=== PATIENT | male | born 1935 | race Caucasian/White ===

== ENCOUNTER 2019-02-16 13:00 | Outpatient (RCR) | payer MEDICARE, OTHER, SELFPAY ==
--- NOTE | 2019-01-05 15:45 | HP.PTEVAL ---
Patient's Visit Information ERIK RESENDEZ is a 83 year old M referred to Physical Therapy by [facility] with a diagnosis of Hip OA, Debility. Date of Evaluation: 01/05/19 Physical Therapist: Sarah Corley DPT - Visit Plan Frequency: 2x /Week Duration: 4 Weeks Plan: Aquatic Therapy- focus on LE and core strength/stabilization for hip pain management and deibility - Subjective Findings: Patient reports that the he hurts all over and the MD wants him to get moving. Pain management sent him here to do aquatic therapy. Is on 2L of O2 at all times. Normal day for him is very sedentary- his and his home health aid (4x a week for 1.5 hours) that do all of his ADL's. The home health aid does most of his showers and helps with dressing. Outside of the house he uses the scooter and inside the home he uses a rollerator. Sleeps in a regular bed. Single story living- has a stair lift to the basement. No stairs to enter the home. Has a great set up at home and does not need anything more. Pain in the hips in the last 24 hours has been a 6-8/10. Makes it better when he is moving around. Best: 5/10. The right is worse than the left. The Left does not bother him at all. His is able to come and dress him after therapy. Sleep: not disturbed. Has been in pain mgmt for about 6-8 months. They work on pain all over- shoulders are also really bad- has an injection in the left shoulder. Had one fall- due to - September. reports that he is wobbly. - Objective Posture: FH, RS- pt is significantly overweight. Gait: uses scooter to navigate long distances- uses quad cane to ambulate 15 feet with SOB, lumber gait pattern and SBA from . Sit to stand: min A with bilateral UE A. ROM: WFL. Strength: Ankle: 4+/5, knee: 4+/5, Hip: 4-/5 Core: poor. Stairs: unable at this time. Endurance: poor. Balance: sitting: fair. Standing dynamic: poor, Standing static: fair minus - Goals Goal 1:: Patient will be I with HEP and progression Goal Time Frame: 4-6 Weeks Goal 2:: Patient will ambulate >300 feet with a cane Goal 3:: Patient will sit to stand x5 with single UE Goal Time Frame: 4-6 Weeks Goal 4:: Patient will maintain proper posture t/o tx session to demo increased core s/s. Goal Time Frame: 4-6 Weeks - Rehabilitation Potential Physical Therapy Diagnosis: Patient presents with hypomobility- he has decrease strength, flex and muscular endurance leading to abnormal gait, debility and inability to perform ADL's. Rehabilitation Potential: Fair - Anticipated Interventions Patient/Client Instruction: Educate patient on: Benefits of Fitness Program Therapeutic Exercise to Include: Strength training, Endurance training, Balance training, Body mechanics, Postural training, Flexibilty training, Gait and locomotor training, In an aquatic setting, Dynamic Lumbar Stabilization Thank you for the opportunity to evaluate your patient. For Medicare and Medicare HMO plans, please review the plan of care and approve it. It will need to be FAXED BACK to us at [phone] for Medicare purposes. For Medicare only, by signing this I certify the plan of care. Please let me know if there are questions or concerns regarding this plan of care. Physician Signature: Date:
--- NOTE | 2019-04-04 11:47 | HP.PT.NRP ---
HP - Discharge Summary (1) - Patient Information ERIK RESENDEZ was seen in my office for initial evaluation on 01/05/19. The following Plan of Care was established for this patient: Initial Frequency: 2x /Week Initial Duration: 4 Weeks - Anticipated Interventions Patient/Client Instruction: Educate patient on: Benefits of Fitness Program Therapeutic Exercise to Include: Strength training, Endurance training, Balance training, Body mechanics, Postural training, Flexibilty training, Gait and locomotor training, In an aquatic setting, Dynamic Lumbar Stabilization This patient was last seen in our office . Pertinent comments regarding their Physical therapy will appear below: At this point I will be discontinuing this patient from physical therapy. I would be happy to see this patient again in the future if found appropriate by the physician. Thank you! MEGAN JohnsonT
== END 2019-02-16 19:00 | disposition home or self-care (01) ==
LOC: PT 13:00
DX: M25.551 Pain in right hip (principal)
CPT/HCPCS: 97113; 97162

== ENCOUNTER 2020-11-12 00:40 | Inpatient (IN) | payer OTHER, MEDICARE, MEDICAID, SELFPAY ==
[2020-11-12] VITALS (17 sets, daily range): BP systolic 90–146; BP diastolic 35–90; PULSE 63–88; RESP 16–20; TEMP 36.6–39.6; O2SAT 95–100; BMI 54.1; BMI 53.1; BMI 53.2
--- NOTE | 2020-11-12 00:42 | RAD_ITS ---
STUDY: X-RAY CHEST REASON FOR EXAM: Male, 85 years old. fever TECHNIQUE: Single AP portable view of the chest. COMPARISON: None. FINDINGS: The lungs are clear and expanded. There is no demonstrated pleural abnormality. There is mild cardiac enlargement. Normal mediastinum and placido. Normal visualized pulmonary arteries. Normal visualized aortic arch and descending thoracic aorta. Normal visualized thoracic spine. Normal visualized ribs, clavicles, and shoulders. Moderate hilar hernia There is no demonstrated abnormality of the visualized soft tissue structures of the upper abdomen. RAD/Chest 1 View (Portable) IMPRESSION: Lungs are clear Electronically Signed: Delano Saxena DO at 1:27 EDT Tel , Service support ,
--- NOTE | 2020-11-12 00:42 | EKG12_ITS ---
Test Reason : SOB Blood Pressure : / mmHG Vent. Rate : 087 BPM Atrial Rate : 084 BPM P-R Int : 000 ms QRS Dur : 206 ms QT Int : 462 ms P-R-T Axes : 000 229 009 degrees QTc Int : 555 ms Wide QRS rhythm Right bundle branch block pattern Inferior infarct , age undetermined , cannot be excluded Abnormal ECG Confirmed by GISELE BURNETTE, NEWTON ([id number]), guitar maker LEOBARDO SANTIAGO ([id number]) on 11/13/2020 9:57:28 AM Referred By: JALEEL Confirmed By:NEWTON JAQUEZ MD
--- NOTE | 2020-11-12 00:43 | ED.DCSUM_ITS ---
History of Present Illness Chief Complaint: Fever Informant: Patient, Family Onset: Today Narrative: Patient is a 5-year-old male presenting with altered mental status and fever. Patient had hemodialysis today. He had a full session. He seemed weak and confused the is concerned may be having a stroke so EMS was called. Patient is found to be tachycardic and febrile with a temperature of 104 ?F by EMS. Patient currently denies any complaints. He does wear oxygen normally he is not sure how much but states a little. No other complaints at this time. Is at the bedside. She states he wears 2 L of oxygen at baseline. He states that he seemed normal after dialysis today. He woke up from a nap and that is when he was confused and shaking she states he was recently on oral antibiotics for an infection around his right eye. She is worried is coming back. Patient did have both Covid vaccines in July. Past Medical History - Allergies and Home Meds Allergies/Adverse Reactions: Allergies horse serum Allergy (Uncoded 11/12/20 00:44) Danny Primary Care Physician: [place] [place] [Primary Care Provider] - Past Medical History: - - End-stage renal disease on hemodialysis, diabetes mellitus, Pepcid, dementia, atrial fibrillation Lives: Spouse/ Significant Other - Family History Maternal Family History: Reports: No pertinent history Review of Systems General: Reports: Chills, Fever, Malaise. Denies: Sweats Eyes: Reports: - - Right eye discharge. Denies: Visual changes - bilaterally, Diplopia ENT: Denies: Rhinorrhea, Sore throat Cardiovascular: Denies: Chest pain, Palpitations Respiratory: Denies: Dyspnea, Cough, Dyspnea on exertion Gastrointestinal: Denies: Abdominal pain, Nausea, Vomiting, Diarrhea, Melena, Hematochezia Genitourinary: Denies: Dysuria, Hematuria, Frequency Musculoskeletal: Denies: Back pain, Extremity Pain Skin: Denies: Rash, Wounds Neurological: Reports: Weakness - Generalized, - - Confusion. Denies: Headache, Numbness Physical Exam Inital Vital Signs reviewed: Yes General: Well nourished, Well developed, Obese, No Acute Distress Head: Normocephalic, Atraumatic Eyes: Perrl, EOMI, - - Mild purulent discharge noted around the right eye ENT: Moist mucous membranes, No rhinorrhea Neck: Supple, Nontender, No JVD Cardiovascular: Regular rhythm, No murmurs, Tachycardia, - - AV fistula in the left upper extremity Respiratory: No distress, CTA bilaterally, Chest nontender Abdomen: Soft, Nontender, Nondistended, Normal bowel sounds. Negative for: Guarding, Rebound tenderness Back: Nontender, Normal Inspection Extremities: Nontender, No edema Skin: Normal color, No rash, - - 2 biopsies spots noted on the scalp. Granulomatous tissue present. Neurological: Alert, Cranial nerves II-XII grossly intact, Normal Strength, Normal Sensation, Disoriented Psychological: Normal affect, Normal Mood Diagnostic/Tx/Re-eval Chest X-Ray - ED: 1 View, Read by ED Physician, Read by Radiologist, No Acute Disease Clinical Impression(s) from Imaging Studies Chest X-Ray 11/12/20 00:42 IMPRESSION: Lungs are clear Electronically Signed: Delano Saxena DO at 1:27 EDT Tel , Service support , Brain CT 11/12/20 02:51 IMPRESSION: Chronic involutional changes of the brain. Electronically Signed: Delano Saxena DO at 3:49 EDT Tel , Service support , Chest/Abdomen/Pelvis CT 11/12/20 02:51 IMPRESSION: 1. Lungs are clear. 2. Large hiatal hernia. No evidence of bowel obstruction. Unremarkable appendix. 3. No acute findings throughout the abdomen or pelvis. Moderate constipation. Electronically Signed: Delano Saxena DO at 4:00 EDT Tel , Service support , Facial/Sinus 11/12/20 02:51 IMPRESSION: Small amount of preseptal periorbital soft tissue swelling on the right. Otherwise, unremarkable exam Electronically Signed: Delano Saxena DO at 3:50 EDT Tel , Service support , Laboratory Data 11/12/20 11/12/20 11/12/20 01:00 01:00 01:00 WBC 7.1 RBC 3.44 L Hgb 12.2 L Hct 38.4 L MCV 111.6 H MCH 35.5 H MCHC 31.8 L RDW Std Deviation 69.5 H RDW Coeff of Nereyda 17.1 H Plt Count 118 L MPV 9.3 Immature Gran % (Auto) 1.000 H Neut % (Auto) 78.5 H Lymph % (Auto) 8.7 L [place] % (Auto) 9.6 Eos % (Auto) 1.6 Baso % (Auto) 0.6 Absolute Neuts (auto) 5.5 Absolute Lymphs (auto) 0.61 L Nucleated RBC % 0.4 PT 12.9 INR 1.0 APTT 22.8 L Sodium 133 L Potassium 5.1 Chloride 96 L Carbon Dioxide 31.0 Anion Gap 6 BUN 19 H Creatinine 5.48 H Estim Creat Clear Calc 9.22 Est GFR (MDRD) Af Amer 13 L Est GFR (MDRD) Non-Af 11 L BUN/Creatinine Ratio 3.5 L Glucose 186 H Lactic Acid Calcium 8.3 L Total Bilirubin 0.60 AST 12 L ALT 22 Alkaline Phosphatase 111 Troponin I < 0.015 Total Protein 7.7 Albumin 3.6 Globulin 4.1 Albumin/Globulin Ratio 0.9 11/12/20 01:00 WBC RBC Hgb Hct MCV MCH MCHC RDW Std Deviation RDW Coeff of Nereyda Plt Count MPV Immature Gran % (Auto) Neut % (Auto) Lymph % (Auto) [place] % (Auto) Eos % (Auto) Baso % (Auto) Absolute Neuts (auto) Absolute Lymphs (auto) Nucleated RBC % PT INR APTT Sodium Potassium Chloride Carbon Dioxide Anion Gap BUN Creatinine Estim Creat Clear Calc Est GFR (MDRD) Af Amer Est GFR (MDRD) Non-Af BUN/Creatinine Ratio Glucose Lactic Acid 1.6 Calcium Total Bilirubin AST ALT Alkaline Phosphatase Troponin I Total Protein Albumin Globulin Albumin/Globulin Ratio - Rhythm Strip Rhythm Strip: Sinus Rhythm Rate: 87 Ectopy: None - EKG Initial EKG Interpretation: Sinus Rhythm, - - Junctional rhythm at a rate of 87 Right bundle branch block Widening QRS of [address] segments - Medical Decision Making Patient is evaluated for confusion and fever. Patient is febrile and tachycardic in the ER. He is also tachypneic. He is given Tylenol with improvement of the above symptoms. Patient does not have any focal neurologic deficits. He has a normal neurologic exam. states he is not acting himself but notes that he does have a little bit of underlying dementia.Work-up shows normal white blood cell count of 7.1. Mild anemia of 12.2 but considering these end-stage renal disease, this is likely his baseline. CMP is significant for mild hyperglycemia and elevated creatinine again, consistent with end-stage renal disease. Troponin is normal. Lactate is normal. There is no obvious source of infection. Did not obtain a urine as patient does not regularly produce urine. Covid swab is negative. Patient is also vaccinated for Covid. Chest x-rays not show any acute process. notes he did recently have an infection around his right eyes I did obtain CT face as well as head. Patient is found to have a small amount of swelling in the preseptal area of the right eye. In addition looking for source of infection, CT chest abdomen pelvis obtained. There is no obvious source of infection. Blood cultures are pending. Patient is not given antibiotics is not have a clear source. He does not have any nuchal rigidity or rash consistent with meningitis. Patient will be admitted for further observation and gentle hydration. Patient and his agreeable with plan of care. ED Disposition - Plan for ED Patient: Disposition: Acute Care [facility] Diagnosis: Fever, Renal failure, Diabetes [facility]errals: [facility] [Primary Care Provider] -
[2020-11-12] MEDS: Acetaminophen 325 MG Tablet 650 MG PO ×2 (00:52→11:49)
[2020-11-12 01:07] LABS: Absolute Lymphocyte Count 0.61 X10^3/uL (0.83-4.51); Absolute Neutrophil Count 5.5 X10^3/uL (2.0-7.7); Basophil# 0.04 X10^3/uL; Basophil% 0.6 % (0-1); Eosinophil# 0.11 X10^3/uL; Eosinophils% 1.6 % (0-5); Hematocrit 38.4 % (40-54); Hemoglobin 12.2 g/dL (13.0-16.5); Lymphocyte # 0.61 X10^3/ul (0.83-4.51); Lymphocyte % 8.7 % (19-41); Mean Corp Hgb Conc 31.8 g/dL (32-36); Mean Corpuscular Hgb 35.5 pg (27.0-32.0); Mean Corpuscular Volume 111.6 fL (80-94); Mean Platelet Vol. 9.3 fl (6.2-12.0); Monocyte# 0.68 X10^3/uL; Monocyte% 9.6 % (0-10); NRBC Flagged by Analyzer 0.4 % (0-5); Neutrophil # 5.54 X10^3/uL (2.7-7.7); Neutrophil % 78.5 % (47-70); POSITIVE MORPHOLOGY YES; Platelet Count 118 K/mm3 (150-450); RBC Distribution Width CV 17.1 % (11.6-14.6); RBC Distribution Width SD 69.5 fl (35.1-43.9); Red Blood Count 3.44 M/mm3 (4.6-6.2); White Blood Count 7.1 K/mm3 (4.4-11.0)
[2020-11-12 01:15] LABS: Prothrombin Time (Protime)PT. 12.9 SECONDS (11.7-14.9)
[2020-11-12 01:16] LABS: Partial Thromboplast Time 22.8 Seconds (24.1-36.2)
[2020-11-12 01:23] LABS: Differential Indicated SCAN CRITERIA MET
[2020-11-12 01:55] LABS: Lactic Acid 1.6 mmol/L (0.4-1.9)
--- NOTE | 2020-11-12 02:51 | CT_ITS ---
STUDY: CT CHEST, ABDOMEN T PELVIS WITHOUT CONTRAST REASON FOR EXAM: Male, 85 years old. fever, AMS RADIATION DOSAGE (If Supplied By Facility): CTDIvol = ( 38.63 ) mGy, DLP = ( 3503.18 ) mGycm TECHNIQUE: Transaxial imaging was performed without the administration of intravenous contrast material. Individualized dose optimization techniques were used for this CT. COMPARISON: No relevant priors. FINDINGS: CHEST Lungs are adequately inflated. Bibasilar atelectasis. No consolidation or effusion. There is no demonstrated pleural abnormality. There is moderate cardiac enlargement. Normal pericardium Normal mediastinum. Normal hilar regions. Normal unenhanced pulmonary arteries. Normal aorta arch and descending thoracic aorta. There are multi-level degenerative changes of the thoracic spine. There is no demonstrated abnormality of the visualized upper abdomen. ABDOMEN The visualized lung bases are unremarkable. The visualized portions of the heart are within normal limits. Normal liver. Normal gallbladder and extrahepatic biliary system. Normal spleen. There is diffuse atrophy of the pancreas. Normal bilateral adrenal glands. There is severe cortical atrophy of the right kidney, consistent with chronic medical renal disease. There is severe cortical atrophy of the left kidney, consistent with chronic medical renal disease. Large hiatal hernia. Otherwise, unremarkable stomach. Normal small intestine. Chronic diverticulosis without acute diverticulitis. Moderate fecal retention throughout the colon. The appendix is visualized and appears normal. There is diffuse atherosclerotic calcification of the abdominal aorta, without a demonstrated aneurysm. Normal inferior vena cava. Normal retroperitoneum. Normal abdominal wall. There are diffuse degenerative changes of the visualized lumbar spine. PELVIS Nondistended urinary bladder Normal visualized small intestine. Normal visualized colon. There is no pelvic fluid. There is no pelvic lymphadenopathy or mass lesion. Normal visualized pelvic arteries. There is a left inguinal hernia containing fat. There are diffuse degenerative changes of the visualized lumbar spine. CT/CT Chest, Abd, Pelvis WO Cont IMPRESSION: 1. Lungs are clear. 2. Large hiatal hernia. No evidence of bowel obstruction. Unremarkable appendix. 3. No acute findings throughout the abdomen or pelvis. Moderate constipation. Electronically Signed: Delano Saxena DO at 4:00 EDT Tel , Service support ,
--- NOTE | 2020-11-12 02:51 | CT_ITS ---
STUDY: CT BRAIN WITHOUT CONTRAST REASON FOR EXAM: Male, 85 years old. AMS, fever RADIATION DOSAGE (If Supplied By Facility): CTDIvol = ( 44.99 ) mGy, DLP = ( 812.98 ) mGycm TECHNIQUE: Transaxial CT imaging of the brain was performed without administration of intravenous contrast material. Individualized dose optimization techniques were used for this CT. COMPARISON: No relevant priors. FINDINGS: Normal soft tissue structures. Normal calvarium. There is mild cerebral atrophy with widening of the extra-axial spaces and ventricular dilatation. There are areas of decreased attenuation within the white matter tracts of the supratentorial brain, consistent with microvascular disease changes. Normal basal ganglia and thalami. Normal brainstem. Normal cerebellum. There is no intracranial hemorrhage. There are no findings of an acute ischemic infarction. Normal visualized paranasal sinuses. CT/Brain/Head without Contrast IMPRESSION: Chronic involutional changes of the brain. Electronically Signed: Delano Saxena DO at 3:49 EDT Tel , Service support ,
--- NOTE | 2020-11-12 02:51 | CT_ITS ---
STUDY: CT FACIAL BONES WITHOUT CONTRAST REASON FOR EXAM: Male, 85 years old. fever, right eye infection RADIATION DOSAGE (If Supplied By Facility): CTDIvol = ( 29.38 ) mGy, DLP = ( 591.53 ) mGycm TECHNIQUE: The patient was scanned in a multi detector CT scanner. Sagittal and coronal images were reconstructed. Individualized dose optimization techniques were used for this CT. COMPARISON: None. FINDINGS: Very subtle right preseptal periorbital soft tissue swelling and edema. Normal orbital skinner and orbital contents. Normal nasal bones and anterior nasal spine. Normal facial bones. There is no demonstrated fracture. Normal visualized paranasal sinuses. CT/Sinus/Facial Bone IMPRESSION: Small amount of preseptal periorbital soft tissue swelling on the right. Otherwise, unremarkable exam Electronically Signed: Delano Saxena DO at 3:50 EDT Tel , Service support ,
[2020-11-12 03:28] LABS: ALB/GLOB Ratio 0.9 RATIO (0.9-2.4); AST(SGOT) 12 U/L (15-37); Alanine Aminotransfer ALT/SGPT 22 U/L (16-61); Albumin, Serum 3.6 g/dL (3.2-5.0); Alkaline Phosphatase 111 U/L (45-117); Anion Gap 6 (5-15); BUN 19 mg/dL (7-18); BUN/Creat Ratio 3.5 RATIO (10-20); Calcium,Total 8.3 mg/dL (8.5-10.1); Chloride 96 mmol/L (98-107); Creatinine, Serum 5.48 mg/dL (0.70-1.30); EST Glomerular Filtration Rate 11 mL/min (>60); Est Glom Filt Rate - Afr Amer 13 mL/min (>60); Estimated Creatinine Clearance 9.22 ml/min; Globulin 4.1 g/dL (2.2-4.2); Glucose 186 mg/dL (74-106); Potassium 5.1 mmol/L (3.5-5.1); Protein, Total 7.7 g/dL (6.4-8.2); Sodium Level 133 mmol/L (136-145)
[2020-11-12] MEDS: 0.9% Normal Saline 1,000 ML 150 ML IV (04:59)
--- NOTE | 2020-11-12 05:07 | PCM.HP.STD ---
Problem List (1) Renal failure Status: Chronic (2) Fever Status: Acute (3) Preseptal cellulitis of right eye Status: Acute (4) Diabetes Status: Chronic History of Present Illness Date of Admission: 11/12/20 Chief Complaint: fever and altered mental status The patient is a 85 year old male patient with significant past medical history of chronic renal failure who is on dialysis presents the emergency room with an altered mental status. The patient had an entire session of dialysis yesterday and upon return home was found to have some slight confusion. After a nap he woke up and was completely confused according to his spouse. Upon arrival to the emergency room he had a temperature of 104 degrees. He has been on outpatient oral antibiotics for cellulitis around his right eye which had resolved however, the is concerned that it may be returning. Covid testing done here in the emergency room was negative and the patient did receive his vaccination in July both doses. CT scan of the face shows some preseptal edema of that right eye but otherwise negative study, chest x-ray is within normal limits and other laboratory studies are unremarkable. The patient has started to become more alert since his arrival to the emergency room. He will be admitted for observation. Past Medical History Past Medical History (Chronic Problems): Chronic Problems Renal failure (Chronic) Diabetes (Chronic) Allergies horse serum Allergy (Uncoded 11/12/20 00:44) Hives Home Medications: Ambulatory Orders Medication Instructions Recorded Amiodarone HCl 200 mg PO DAILY 11/12/20 Aspirin E.C. [Ecotrin] 81 mg PO DAILY@0800 11/12/20 Atorvastatin Calcium 20 mg PO DAILY 11/12/20 Calcium Carbonate [Tums] 400 mg PO PCHS 11/12/20 Famotidine [Pepcid] 20 mg PO DAILY 11/12/20 Gabapentin 300 mg PO TID 11/12/20 Insulin Aspart [Novolog Flexpen 20 units SC TIDCM 11/12/20 ([facility])] Insulin Glargine,Hum.rec.anlog 55 unit SQ QHS 11/12/20 [Lantus Solostar] Isosorbide Mononitrate 30 mg PO QHS 11/12/20 Mecobalamin [B12 Active] 1,000 mcg PO BID 11/12/20 Methadone HCl [Dolophine] 2.5 mg PO DAILY 11/12/20 Methocarbamol 750 mg PO TID PRN PRN 11/12/20 Metoprolol Succinate 25 mg PO DAILY 11/12/20 Polyethylene Glycol 8000 3,340 gm PO DAILY 11/12/20 [Polyethylene Glycol] Sevelamer Carbonate 2,400 mg PO TID 11/12/20 Tiotropium Br/Olodaterol HCl 2 puff IH DAILY 11/12/20 [Stiolto Respimat Inhal [place]] Surgical History: no surgical history Lives: Spouse/ Significant Other Smoking Status: Never smoker - *Family History Maternal History Items: No pertinent history Review of Systems Constitutional: Reports: Chills, Fever, Malaise, Weakness. Denies: Weight Change HEENT: Denies: Head Aches, Sinus Congestion, Sinus Drainage Cardiovascular: Denies: Chest Pain, Palpitations Respiratory: Denies: Cough, Shortness of breath at rest, Sputum production Gastrointestinal: Denies: Abdominal Pain, Nausea, Vomiting Genitourinary: Denies: Dysuria Musculoskeletal: Denies: Joint Pain, Joint Tenderness Skin: Reports: Wounds - ?right eye swelling. Denies: Rash Neurological: Denies: Numbness, Tingling, Focal weakness Psychiatric: Denies: Anxiety, Depression, Homicidal Ideations, Suicidal Ideations Hematologic/ Lymphatic: Denies: Easy Bruising, Easy Bleeding VTE Information - Inpt Only VTE Present on Admission: No VTE Mechan Device Prophylaxis: SCD's VTE Pharm Prophylaxis ordered?: No - Physical Exam Vitals/I&O's: Vital Signs Temp Pulse Resp BP Pulse Ox 100.5 F H 84 19 H 97/56 L 98 11/12/20 04:45 11/12/20 04:45 11/12/20 04:45 11/12/20 04:45 11/12/20 04:45 Oxygen Flow Rate (L/min) 4 Oxygen Delivery Method Nasal Cannula Weight: 335 lb 1.642 oz Body Mass Index (BMI) 54.1 General: Alert, Oriented x3, Cooperative, - - obese HEENT: Atraumatic, PERRLA, EOMI, Normocephalic Neck: Supple Lungs: Clear to auscultation, Normal air movement Cardiovascular: Regular rate, Normal S1, Normal S2, No murmurs Abdomen: Bowel Sounds Present, Soft, Non Tender, Obese Extremities: No edema Skin: No rashes, - - right eye periorbital edema(mild), two recent skin biopsies on scalp Musculoskeletal: No Tenderness to Palpation of Joints or Extremities Neurological: Neuro grossly intact Psych/Mental Status: Normal Affect, Appropriate Microbiology Past 72 Hours 11/12/20 00:50 Nasal Secretion SARS-CoV-2 Antigen (Rapid) - Final Laboratory Results 11/12/20 01:00: WBC 7.1, RBC 3.44 L, Hgb 12.2 L, Hct 38.4 L, MCV 111.6 H, MCH 35.5 H, MCHC 31.8 L, RDW Std Deviation 69.5 H, RDW Coeff of Nereyda 17.1 H, Plt Count 118 L, MPV 9.3, Immature Gran % (Auto) 1.000 H, Neut % (Auto) 78.5 H, Lymph % (Auto) 8.7 L, [place] % (Auto) 9.6, Eos % (Auto) 1.6, Baso % (Auto) 0.6, Absolute Neuts (auto) 5.5, Absolute Lymphs (auto) 0.61 L, Nucleated RBC % 0.4 11/12/20 01:00: PT 12.9, INR 1.0, APTT 22.8 L 11/12/20 01:00: Sodium 133 L, Potassium 5.1, Chloride 96 L, Carbon Dioxide 31.0, Anion Gap 6, BUN 19 H, Creatinine 5.48 H, Estim Creat Clear Calc 9.22, Est GFR (MDRD) Af Amer 13 L, Est GFR (MDRD) Non-Af 11 L, BUN/Creatinine Ratio 3.5 L, Glucose 186 H, Calcium 8.3 L, Total Bilirubin 0.60, AST 12 L, ALT 22, Alkaline Phosphatase 111, Troponin I < 0.015, Total Protein 7.7, Albumin 3.6, Globulin 4.1, Albumin/Globulin Ratio 0.9 11/12/20 01:00: Lactic Acid 1.6 Current Medications Sodium Chloride () 1,000 mls @ 150 mls/hr IV .Q6H40M [facility] Last Admin: 11/12/20 04:59 Dose: 150 mls/hr Documented by: Assessment/Plan All Active Problems Fever (Acute) Preseptal cellulitis of right eye (Acute) Chronic Problems Renal failure (Chronic) Diabetes (Chronic) Plan 1. Altered mental status/confusion/fever of unknown origin?admit patient to general medical floor for observation with gentle IV hydration due to chronic renal failure. Source of fever has been unidentified at this point, Covid testing is negative and patient has been vaccinated. Chest x-ray was clear and urine was not tested due to chronic renal failure. He has not received antibiotics in the emergency room however due to questionable preseptal cellulitis that has been treated as an outpatient and may be returning I will give him a one-time dose of vancomycin 1 g. 2. Diabetes?continue home medications 3. DVT prophylaxis?SCDs OBSV E&M: [id number] Initial observation care L2
--- NOTE | 2020-11-12 05:07 | ED.RN ---
report called to dorothy caba.
[2020-11-12] MEDS: 0.9% Normal Saline 1,000 ML 100 ML IV ×2 (05:58→17:35)
[2020-11-12] MEDS: Vancomycin IV 1,000 MG/200 ML BAG 200 MG IV (06:04)
[2020-11-12] MEDS: Gabapentin 300 MG Capsule PO ×3 (06:05→22:34)
--- NOTE | 2020-11-12 07:28 | PCM.PN.HOSP ---
Patient Problems: Active and Suspected Problems Fever (Acute) Preseptal cellulitis of right eye (Acute) Vitals/I&O's: Vital Signs Temp Pulse Resp BP Pulse Ox 97.9 F 83 17 100/50 L 100 11/12/20 05:30 11/12/20 05:30 11/12/20 05:30 11/12/20 05:30 11/12/20 05:30 Oxygen Flow Rate (L/min) 2 Oxygen Delivery Method Nasal Cannula Weight: 329 lb 9.457 oz Body Mass Index (BMI) 53.1 Intake and Output for Last 24 Hours 11/10/20 11/11/20 11/12/20 23:59 23:59 23:59 Intake Total 597.5 / 597.5 Balance 597.5 / 597.5 Microbiology Past 72 Hours 11/12/20 00:50 Nasal Secretion SARS-CoV-2 Antigen (Rapid) - Final Laboratory Results 11/12/20 01:00: WBC 7.1, RBC 3.44 L, Hgb 12.2 L, Hct 38.4 L, MCV 111.6 H, MCH 35.5 H, MCHC 31.8 L, RDW Std Deviation 69.5 H, RDW Coeff of Nereyda 17.1 H, Plt Count 118 L, MPV 9.3, Immature Gran % (Auto) 1.000 H, Neut % (Auto) 78.5 H, Lymph % (Auto) 8.7 L, [place] % (Auto) 9.6, Eos % (Auto) 1.6, Baso % (Auto) 0.6, Absolute Neuts (auto) 5.5, Absolute Lymphs (auto) 0.61 L, Nucleated RBC % 0.4 11/12/20 01:00: PT 12.9, INR 1.0, APTT 22.8 L 11/12/20 01:00: Sodium 133 L, Potassium 5.1, Chloride 96 L, Carbon Dioxide 31.0, Anion Gap 6, BUN 19 H, Creatinine 5.48 H, Estim Creat Clear Calc 9.22, Est GFR (MDRD) Af Amer 13 L, Est GFR (MDRD) Non-Af 11 L, BUN/Creatinine Ratio 3.5 L, Glucose 186 H, Calcium 8.3 L, Total Bilirubin 0.60, AST 12 L, ALT 22, Alkaline Phosphatase 111, Troponin I < 0.015, Total Protein 7.7, Albumin 3.6, Globulin 4.1, Albumin/Globulin Ratio 0.9 11/12/20 01:00: Lactic Acid 1.6 Current Medications Acetaminophen (Acetaminophen 325 Mg Tablet) 650 mg PO Q6H PRN PRN PRN Reason: Pain Score 1-10/Temp > 100.7 F Albuterol/Ipratropium (Ipratropium/Albuterol Sulfate 3 Ml Ampul.Neb) 3 ml INHALATION Q6HWA.RT [place] Amiodarone HCl (Amiodarone 200 Mg Tablet) 200 mg PO DAILY [facility] Aspirin (Aspirin E.C. 81 Mg Tablet) 81 mg PO DAILY@0800 [place] Atorvastatin Calcium (Atorvastatin Calcium 20 Mg Tablet) 20 mg PO DAILY@2200 [facility] Calcium Carbonate (Calcium Carbonate 500 Mg Tablet) 500 mg PO PCHS [facility] Cyanocobalamin (Cyanocobalamin 500 Mcg Tablet) 1,000 mcg PO BID [place] Famotidine (Famotidine 20 Mg Tablet) 20 mg PO DAILY [facility] Gabapentin (Gabapentin 300 Mg Capsule) 300 mg PO TID [facility] Last Admin: 11/12/20 06:05 Dose: 300 mg Documented by: Sodium Chloride () 1,000 mls @ 100 mls/hr IV .Q10H [place] Last Infusion: 11/12/20 07:04 Dose: 100 mls/hr Documented by: Sodium Chloride () 250 mls @ 15 mls/hr IV .[id number] PRN PRN Reason: Saline Flush Sodium Chloride () 250 mls @ 15 mls/hr IV .[id number] PRN PRN Reason: Additional IVPB Infusion Insulin Glargine (Insulin Glargine 100 Units/Ml Pen) 55 units SC QHS [facility] Isosorbide Mononitrate (Isosorbide Mononitrate 30 Mg Tablet) 30 mg PO QHS [facility] Methadone HCl (Methadone 5 Mg Tablet) 2.5 mg PO DAILY [facility] Methocarbamol (Methocarbamol 750 Mg Tablet) 750 mg PO TID PRN PRN PRN Reason: Muscle spasms Metoprolol Succinate (Metoprolol(Xl)Succ 25 Mg Tablet) 25 mg PO DAILY [facility] Polyethylene Glycol (Polyethylene Glycol 3350 17 Gm Packet) 17 gm PO DAILY [facility] Sevelamer Carbonate (Sevelamer Carbonate 800 Mg Tablet) 2,400 mg PO TIDCM [place] Sodium Chloride (0.9% Saline Lock 10 Ml Syringe) 10 - 40 ml IV UD PRN PRN Reason: SALINE FLUSH STROKE Vital Signs/Narrative: Vital Signs Temp Pulse Resp BP Pulse Ox 11/12/20 05:30 97.9 F 83 17 100/50 L 100 11/12/20 04:45 100.5 F H 84 19 H 97/56 L 98 11/12/20 04:44 100.5 F H 84 19 H 97/56 L 98 Medical Necessity - Tobacco Use Smoking Status: Never smoker Assessment/Plan All Active Problems Fever (Acute) Preseptal cellulitis of right eye (Acute)
[2020-11-12] MEDS: Calcium Carbonate 500 MG Tablet PO ×3 (09:32→17:04)
[2020-11-12] MEDS: Amiodarone 200 MG Tablet PO (09:32)
[2020-11-12] MEDS: SEVELAMER CARBONATE 800 MG TABLET 2400 MG PO ×3 (09:32→17:03)
[2020-11-12] MEDS: Cyanocobalamin 500 MCG Tablet 1000 MCG PO ×2 (09:32→22:36)
[2020-11-12] MEDS: Famotidine 20 MG Tablet PO (09:32)
[2020-11-12] MEDS: Metoprolol(XL)Succ 25 MG Tablet PO (09:33)
[2020-11-12] MEDS: Polyethylene Glycol 3350 17 GM PACKET PO (09:33)
[2020-11-12] MEDS: Aspirin E.C. 81 MG Tablet PO (09:33)
--- NOTE | 2020-11-12 13:01 | PCM.HOSP.N ---
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 Seen and examined. Patient was admitted with fever, T-max 103.3 Fahrenheit and altered mental status. Patient also on hemodialysis. EMS found temperature 104 Fahrenheit. On home oxygen. Patient is bedridden uses wheeled chair for ambulation. Patient also has been on oral antibiotic for right eye preseptal cellulitis Physical exam: General: Mild lethargic. Oriented to time place and person. HEENT: Yellow crust on the right eyelashes with redness of the palpebral conjunctive. No eyelid tenderness. PERRLA and EOMI present. Oral: No Gingival or Mucosal Lesions/ Ulcerations Neck: Supple, No JVD, Negative Carotid Bruits Lungs: Air entry diminished in bilateral lung bases. No crepitation/rhonchi Cardiovascular: Regular rate, Regular Rhythm, Normal S1, Normal S2, No murmurs Abdomen: Bowel Sounds Present, Soft, Non Tender, Non-Distended : On hemodialysis. No renal angle tenderness. Extremities: No edema, Capillary Refill Less than 3 Seconds Skin: No rashes, No breakdown Musculoskeletal: Chronic bilateral lower extremity weakness at hip and knee joints. No Tenderness to Palpation of Joints or Extremities Neurological: Cranial nerves II-XII grossly intact, no focal neurological deficit Psych/Mental Status: Flat affect 1. Fever and altered mental status probably acute encephalopathy from infectious etiology/metabolic etiology. Discussed with the ID. Patient had been vaccinated. Covid test negative. CT sinus shows mild preseptal periorbital soft tissue swelling. Chest abdomen pelvis CT shows lungs. Large hiatus hernia but no acute findings. Patient wants to go home. Still having fever 100.3 Fahrenheit. Clinical Impression(s) from Imaging Studies Chest X-Ray 11/12/20 00:42 IMPRESSION: Lungs are clear Electronically Signed: Delano Saxena DO at 1:27 EDT Tel , Service support , Brain CT 11/12/20 02:51 IMPRESSION: Chronic involutional changes of the brain. Electronically Signed: Delano Saxena DO at 3:49 EDT Tel , Service support , Chest/Abdomen/Pelvis CT 11/12/20 02:51 IMPRESSION: 1. Lungs are clear. 2. Large hiatal hernia. No evidence of bowel obstruction. Unremarkable appendix. 3. No acute findings throughout the abdomen or pelvis. Moderate constipation. Electronically Signed: Delano Saxena DO at 4:00 EDT Tel , Service support , Facial/Sinus 11/12/20 02:51 IMPRESSION: Small amount of preseptal periorbital soft tissue swelling on the right.. Otherwise, unremarkable exam Electronically Signed: Delano Saxena DO at 3:50 EDT Tel , Service support , Inpatient E&M: [id number] Subs Hosp L2
[2020-11-12] MEDS: Ipratropium/Albuterol Sulfate 3 ML AMPUL.NEB INHALATION ×2 (13:42→19:50)
--- NOTE | 2020-11-12 16:26 | PCM.HP.ID ---
Problem List (1) Fever Status: Acute Reason for Consult: fever Consulted by: Dr. Dean History of Present Illness: The patient is a 85 year old M recent course of abx for R preseptal cellulitis, presented yesterday with new onset fever, confusion. No issues with dialysis or LUE fistula. No vision change, no headache, no neck pain, no double vision, no cough, no SOB, no n/v/d, no dysuria, no aches. Has completed covid series. No sick contacts. Given vanc x1, admitted to [facility], feeling back to normal. Full ROS performed and neg except as noted above. - Medical History Past Medical History (Chronic Problems): Chronic Problems Renal failure (Chronic) Diabetes (Chronic) Allergies/Adverse Reactions: Allergies horse serum Allergy (Uncoded 11/12/20 00:44) Hives Home Medications: Ambulatory Orders Medication Instructions Recorded Amiodarone HCl 200 mg PO DAILY 11/12/20 Aspirin E.C. [Ecotrin] 81 mg PO DAILY@0800 11/12/20 Atorvastatin Calcium 20 mg PO DAILY 11/12/20 Calcium Carbonate [Tums] 400 mg PO PCHS 11/12/20 Famotidine [Pepcid] 20 mg PO DAILY 11/12/20 Gabapentin 300 mg PO TID 11/12/20 Insulin Aspart [Novolog Flexpen 20 units SC TIDCM 11/12/20 ([facility])] Insulin Glargine,Hum.rec.anlog 55 unit SQ QHS 11/12/20 [Lantus Solostar] Isosorbide Mononitrate 30 mg PO QHS 11/12/20 Mecobalamin [B12 Active] 1,000 mcg PO BID 11/12/20 Methadone HCl [Dolophine] 2.5 mg PO DAILY 11/12/20 Methocarbamol 750 mg PO TID PRN PRN 11/12/20 Metoprolol Succinate 25 mg PO DAILY 11/12/20 Polyethylene Glycol 8000 3,340 gm PO DAILY 11/12/20 [Polyethylene Glycol] Sevelamer Carbonate 2,400 mg PO TID 11/12/20 Tiotropium Br/Olodaterol HCl 2 puff IH DAILY 11/12/20 [Stiolto Respimat Inhal [place]] - Social History Tobacco Use: non-smoker Vital Signs Temp Pulse Resp BP Pulse Ox 97.9 F 88 16 103/64 100 11/12/20 14:08 11/12/20 13:43 11/12/20 13:43 11/12/20 11:40 11/12/20 11:40 Oxygen Flow Rate (L/min) 2 Oxygen Delivery Method Nasal Cannula Weight: 149.5 kg Body Mass Index (BMI) 53.1 Microbiology Past 72 Hours 11/12/20 00:50 SARS-CoV-2 Antigen (Rapid) - Final Nasal Secretion Laboratory Tests Past 24 Hrs 11/12/20 11/12/20 11/12/20 01:00 01:00 01:00 WBC 7.1 RBC 3.44 L Hgb 12.2 L Hct 38.4 L MCV 111.6 H MCH 35.5 H MCHC 31.8 L RDW Std Deviation 69.5 H RDW Coeff of Nereyda 17.1 H Plt Count 118 L MPV 9.3 Immature Gran % (Auto) 1.000 H Neut % (Auto) 78.5 H Lymph % (Auto) 8.7 L [place] % (Auto) 9.6 Eos % (Auto) 1.6 Baso % (Auto) 0.6 Absolute Neuts (auto) 5.5 Absolute Lymphs (auto) 0.61 L Nucleated RBC % 0.4 PT 12.9 INR 1.0 APTT 22.8 L Sodium 133 L Potassium 5.1 Chloride 96 L Carbon Dioxide 31.0 Anion Gap 6 BUN 19 H Creatinine 5.48 H Estim Creat Clear Calc 9.22 Est GFR (MDRD) Af Amer 13 L Est GFR (MDRD) Non-Af 11 L BUN/Creatinine Ratio 3.5 L Glucose 186 H Lactic Acid Calcium 8.3 L Total Bilirubin 0.60 AST 12 L ALT 22 Alkaline Phosphatase 111 Troponin I < 0.015 Total Protein 7.7 Albumin 3.6 Globulin 4.1 Albumin/Globulin Ratio 0.9 11/12/20 01:00 WBC RBC Hgb Hct MCV MCH MCHC RDW Std Deviation RDW Coeff of Nereyda Plt Count MPV Immature Gran % (Auto) Neut % (Auto) Lymph % (Auto) [place] % (Auto) Eos % (Auto) Baso % (Auto) Absolute Neuts (auto) Absolute Lymphs (auto) Nucleated RBC % PT INR APTT Sodium Potassium Chloride Carbon Dioxide Anion Gap BUN Creatinine Estim Creat Clear Calc Est GFR (MDRD) Af Amer Est GFR (MDRD) Non-Af BUN/Creatinine Ratio Glucose Lactic Acid 1.6 Calcium Total Bilirubin AST ALT Alkaline Phosphatase Troponin I Total Protein Albumin Globulin Albumin/Globulin Ratio - Other Studies Radiology: [] reviewed Other Studies: [] Route of nutrition/ use of supplements: [] Nutritional Intake: [] IV Site: [] Dowell Catheter: [] - Physical Exam General: Alert, Oriented x3, Cooperative, No apparent distress HEENT: Atraumatic, PERRLA, EOMI Neck: Supple, No Nodes Lungs: Clear to auscultation, Normal air movement Cardiovascular: Regular rate, Regular Rhythm Abdomen: Soft, Non Tender, Non-Distended Extremities: No edema Skin: No rashes IV Site: Peripheral, without redness Musculoskeletal: No Tenderness to Palpation of Joints or Extremities Neurological: Cranial nerves II-XII grossly intact - Assessment/Plan Antibiotics: [] Assessment/Plan: [] Active and Suspected Problems Fever (Acute) Preseptal cellulitis of right eye (Acute) Fever, improved. Reviewed CT reports. Cxs pending. Got vanc x1. Will check resp pcr panel. Covid neg, has completed vaccine. Ok for home from my perspective. Will follow, thank you
--- NOTE | 2020-11-12 18:37 | NURSING ---
aWare per Angeline museum attendant she would call consult to Dr. Melgar
[2020-11-12 22:30] LABS: Bedside Glucose 213 mg/dL (70-110)
[2020-11-12] MEDS: Isosorbide Mononitrate 30 MG Tablet PO (22:34)
[2020-11-12] MEDS: Atorvastatin Calcium 20 MG Tablet PO (22:34)
[2020-11-12] MEDS: 0.9% Saline Lock 10 ML Syringe IV (22:36)
[2020-11-13 04:21] VITALS: BP 103/48; PULSE 79; RESP 20; TEMP 37.2; O2SAT 95
[2020-11-13 06:01] LABS: Absolute Lymphocyte Count 1.21 X10^3/uL (0.83-4.51); Absolute Neutrophil Count 3.1 X10^3/uL (2.0-7.7); Basophil# 0.02 X10^3/uL; Basophil% 0.4 % (0-1); Eosinophil# 0.08 X10^3/uL; Eosinophils% 1.6 % (0-5); Hematocrit 31.8 % (40-54); Hemoglobin 9.7 g/dL (13.0-16.5); Lymphocyte # 1.21 X10^3/ul (0.83-4.51); Lymphocyte % 23.5 % (19-41); Mean Corp Hgb Conc 30.5 g/dL (32-36); Mean Corpuscular Hgb 34.5 pg (27.0-32.0); Mean Corpuscular Volume 113.2 fL (80-94); Monocyte# 0.67 X10^3/uL; NRBC Flagged by Analyzer 0.6 % (0-5); Neutrophil # 3.07 X10^3/uL (2.7-7.7); Neutrophil % 59.7 % (47-70); POSITIVE MORPHOLOGY YES; Platelet Count 101 K/mm3 (150-450); RBC Distribution Width CV 17.2 % (11.6-14.6); RBC Distribution Width SD 71.7 fl (35.1-43.9); Red Blood Count 2.81 M/mm3 (4.6-6.2); White Blood Count 5.1 K/mm3 (4.4-11.0)
[2020-11-13] MEDS: 0.9% Normal Saline 1,000 ML 100 ML IV (06:02)
[2020-11-13] MEDS: Gabapentin 300 MG Capsule PO (06:03)
[2020-11-13 06:07] LABS: Differential Indicated SCAN CRITERIA MET
[2020-11-13 06:56] LABS: Anion Gap 7 (5-15); BUN 35 mg/dL (7-18); BUN/Creat Ratio 4.3 RATIO (10-20); Calcium,Total 7.8 mg/dL (8.5-10.1); Chloride 100 mmol/L (98-107); EST Glomerular Filtration Rate 7 mL/min (>60); Est Glom Filt Rate - Afr Amer 8 mL/min (>60); Estimated Creatinine Clearance 6.16 ml/min; Glucose 155 mg/dL (74-106); Potassium 5.2 mmol/L (3.5-5.1); Sodium Level 132 mmol/L (136-145)
--- NOTE | 2020-11-13 07:59 | DCINST_ITS ---
- Discharge Diagnoses Current Active Problems: Current Active and Chronic Problems Renal failure (Chronic) Fever (Acute) Preseptal cellulitis of right eye (Acute) Diabetes (Chronic) You will use the following diet at home:: Calorie/Carbohydrate Controlled (specify 1200, 1400, etc) - 1800 ADA diet, Cardiac Your food should be the consistency of: Regular Discharge Activity: May Not Drive, Use Walker Call your doctor if you observe: Fever of 101 or Higher, Numbness or Tingling, Change in Color, Inability to urinate, Inability to have a bowel movement, Shortness of breath, Dizziness, Fainting spells, Swelling in the ankles, Chest pain, Increased palpitations (irregular heartbeat), Calf discomfort, Uncontrolled pain Additional Instructions: Patient needs to see [facility] in 1 week if conjunctivitis does not resolve Allergies/Adverse Reactions: Allergies horse serum Allergy (Uncoded 11/12/20 00:44) Hives Medications to take at Discharge Amiodarone HCl 200 mg PO DAILY 11/12/20 Aspirin E.C. [Ecotrin] 81 mg PO DAILY@0800 11/12/20 Atorvastatin Calcium 20 mg PO DAILY 11/12/20 Calcium Carbonate [Tums] 400 mg PO PCHS 11/12/20 Famotidine [Pepcid] 20 mg PO DAILY 11/12/20 Gabapentin 300 mg PO TID 11/12/20 Insulin Aspart [Novolog Flexpen] 20 units SC TIDCM 11/12/20 Insulin Glargine,Hum.rec.anlog [Lantus Solostar] 55 unit SQ QHS 11/12/20 Isosorbide Mononitrate 30 mg PO QHS 11/12/20 Mecobalamin [B12 Active] 1,000 mcg PO BID 11/12/20 Methadone HCl 2.5 mg PO DAILY 11/12/20 Methocarbamol 750 mg PO TID PRN PRN 11/12/20 Metoprolol Succinate 25 mg PO DAILY 11/12/20 Polyethylene Glycol 8000 [Polyethylene Glycol] 3,340 gm PO DAILY 11/12/20 Sevelamer Carbonate 2,400 mg PO TID 11/12/20 Tiotropium Br/Olodaterol HCl [Stiolto Respimat Inhal [place]] 2 puff IH DAILY 11/12/20 Polymyxin B Sulf/Trimethoprim [Polymyxin B-Tmp Eye Drops] 1 drp OP Q4H 5 Days #10 ml 11/13/20 The following prescriptions were given: Polymyxin B Sulf/Trimethoprim [Polymyxin B-Tmp Eye Drops] 1 drp OP Q4H 5 Days #10 ml Transmission Status: Pending to [facility] [facility] Primary Care Physician: [facility],[place] [Primary Care Provider] - Please follow up with your Primary Care Physician in: In 1 to 2 weeks Test Results: Test results from this visit will be discussed in further detail at your follow- up appointment, if applicable.
--- NOTE | 2020-11-13 07:59 | PCM.DC.SUM ---
Discharge Date and Diagnosis - Problem List Patient Problems: Active and Suspected Problems Fever (Acute) Preseptal cellulitis of right eye (Acute) Date of Admission: 11/12/20 Date of Discharge: 11/13/20 - Primary Discharge Diagnosis Acute Problems: Active Problems Fever (Acute) Preseptal cellulitis of right eye (Acute) - Secondary Discharge Diagnosis Chronic Problems: Chronic Problems Renal failure (Chronic) Diabetes (Chronic) Hospital Course and Treatment Summary of Care Provided: The patient is a 85 year old M gentleman with multiple comorbidities including ESRD on hemodialysis was admitted with altered mental status and fever. In ED patient had temperature 104 Fahrenheit. Patient has been on antibiotic for preseptal cellulitis of right eye. As per , patient was confused and acting not himself. Patient was admitted in ICU initially and then at around transferred to [facility] floor. Patient was still having fever 100.3 Fahrenheit in afternoon. 1. Fever and altered mental status probably acute encephalopathy from infectious etiology/metabolic etiology. Patient had been vaccinated. Covid test negative. CT sinus shows mild preseptal periorbital soft tissue swelling. Chest abdomen pelvis showed no acute finding. Patient has right eye palpebral conjunctivitis. Patient is discharged on polymyxin B/sulfamethoxazole eyedrop. Discussed with ID and does not need systemic antibiotic. 2. Morbid obesity: Patient with BMI of 54.1 3. Diabetes mellitus type 2 glucose is controlled 155. 4. ESRD on hemodialysis: Patient discharged to hemodialysis center. Discharge medication reconciliation done. Discharge follow-up instructions completed. Discharge process discussed with the patient and all questions were answered to patient's satisfaction. Total time spent, exact 35 minutes on discharge meds reconciliation, examination, coordination of care with nurses and ancillary staff, review of imaging and blood test and discussion with the patient on follow-up instructions Clinical Impression(s) from Imaging Studies Chest X-Ray 11/12/20 00:42 IMPRESSION: Lungs are clear Electronically Signed: Delano Saxena DO at 1:27 EDT Tel , Service support , Brain CT 11/12/20 02:51 IMPRESSION: Chronic involutional changes of the brain. Chest/Abdomen/Pelvis CT 11/12/20 02:51 IMPRESSION: 1. Lungs are clear. 2. Large hiatal hernia. No evidence of bowel obstruction. Unremarkable appendix. 3. No acute findings throughout the abdomen or pelvis. Moderate constipation. Facial/Sinus 11/12/20 02:51 IMPRESSION: Small amount of preseptal periorbital soft tissue swelling on the right. Otherwise, unremarkable exam Electronically Signed: Delano Saxena DO at 3:50 EDT Tel , Service support , Patient Problems: Active and Suspected Problems Fever (Acute) Preseptal cellulitis of right eye (Acute) Objective: Seen and examined. No fever for 24 hours. Looks like sick. Physical exam: General: Mild lethargic. Oriented to time place and person. HEENT: Mild right eye palpebral conjunctivitis/redness. no eyelid tenderness. PERRLA and EOMI present. Oral: No Gingival or Mucosal Lesions/ Ulcerations Neck: Supple, No JVD, Negative Carotid Bruits Lungs: Air entry diminished in bilateral lung bases. No crepitation/rhonchi Cardiovascular: Regular rate, Regular Rhythm, Normal S1, Normal S2, No murmurs Abdomen: Bowel Sounds Present, Soft, Non Tender, Non-Distended : On hemodialysis. No renal angle tenderness. Extremities: No edema, Capillary Refill Less than 3 Seconds Skin: No rashes, No breakdown Musculoskeletal: Chronic bilateral lower extremity weakness at hip and knee joints. No Tenderness to Palpation of Joints or Extremities Neurological: Cranial nerves II-XII grossly intact, no focal neurological deficit Psych/Mental Status: Flat affect - Physical Exam Vitals/I&O's: Vital Signs Temp Pulse Resp BP Pulse Ox 99 F 79 20 H 103/48 L 95 11/13/20 04:21 11/13/20 04:21 11/13/20 04:21 11/13/20 04:21 11/13/20 04:21 Oxygen Flow Rate (L/min) 2 Oxygen Delivery Method Nasal Cannula Weight: 329 lb 9.457 oz Body Mass Index (BMI) 53.1 Intake and Output for Last 24 Hours 11/11/20 11/12/20 11/13/20 23:59 23:59 23:59 Intake Total 2999.17 / 2999.17 608.33 / 608.33 Balance 2999.17 / 2999.17 608.33 / 608.33 Microbiology Past 72 Hours 11/12/20 17:34 Mucosa - Nose Respiratory Panel (PCR) - Final 11/12/20 00:50 Nasal Secretion SARS-CoV-2 Antigen (Rapid) - Final Laboratory Results 11/12/20 22:21: POC Glucose 213 H 11/13/20 05:50: WBC 5.1, RBC 2.81 L, Hgb 9.7 L, Hct 31.8 L, MCV 113.2 H, MCH 34.5 H, MCHC 30.5 L, RDW Std Deviation 71.7 H, RDW Coeff of Nereyda 17.2 H, Plt Count 101 L, MPV 9.0, Immature Gran % (Auto) 1.800 H, Neut % (Auto) 59.7, Lymph % (Auto) 23.5, [place] % (Auto) 13.0 H, Eos % (Auto) 1.6, Baso % (Auto) 0.4, Absolute Neuts (auto) 3.1, Absolute Lymphs (auto) 1.21, Nucleated RBC % 0.6 11/13/20 05:50: Sodium 132 L, Potassium 5.2 H, Chloride 100, Carbon Dioxide 25.0, Anion Gap 7, BUN 35 H, Creatinine 8.20 H*, Estim Creat Clear Calc 6.16, Est GFR (MDRD) Af Amer 8 L, Est GFR (MDRD) Non-Af 7 L, BUN/Creatinine Ratio 4.3 L, Glucose 155 H, Calcium 7.8 L Current Medications Acetaminophen (Acetaminophen 325 Mg Tablet) 650 mg PO Q6H PRN PRN PRN Reason: Pain Score 1-10/Temp > 100.7 F Last Admin: 11/12/20 11:49 Dose: 650 mg Documented by: Albuterol/Ipratropium (Ipratropium/Albuterol Sulfate 3 Ml Ampul.Neb) 3 ml INHALATION Q6HWA.RT [place] Last Admin: 11/12/20 19:50 Dose: 3 ml Documented by: Amiodarone HCl (Amiodarone 200 Mg Tablet) 200 mg PO DAILY [place] Last Admin: 11/12/20 09:32 Dose: 200 mg Documented by: Aspirin (Aspirin E.C. 81 Mg Tablet) 81 mg PO DAILY@0800 [facility] Last Admin: 11/12/20 09:33 Dose: 81 mg Documented by: Atorvastatin Calcium (Atorvastatin Calcium 20 Mg Tablet) 20 mg PO DAILY@2200 [facility] Last Admin: 11/12/20 22:34 Dose: 20 mg Documented by: Calcium Carbonate (Calcium Carbonate 500 Mg Tablet) 500 mg PO [facility] Last Admin: 11/12/20 22:42 Dose: Not Given Documented by: Cyanocobalamin (Cyanocobalamin 500 Mcg Tablet) 1,000 mcg PO BID [facility] Last Admin: 11/12/20 22:36 Dose: 1,000 mcg Documented by: Famotidine (Famotidine 20 Mg Tablet) 20 mg PO DAILY [facility] Last Admin: 11/12/20 09:32 Dose: 20 mg Documented by: Gabapentin (Gabapentin 300 Mg Capsule) 300 mg PO TID [facility] Last Admin: 11/13/20 06:03 Dose: 300 mg Documented by: Sodium Chloride () 1,000 mls @ 100 mls/hr IV .Q10H [facility] Last Admin: 11/13/20 06:02 Dose: 100 mls/hr Documented by: Sodium Chloride () 250 mls @ 15 mls/hr IV .[id number] PRN PRN Reason: Saline Flush Sodium Chloride () 250 mls @ 15 mls/hr IV .[id number] PRN PRN Reason: Additional IVPB Infusion Insulin Glargine (Insulin Gl[facility] 100 Units/Ml Pen) [facility] Last Admin: 11/12/20 23:05 Dose: 55 unit Documented by: Isosorbide Mononitrate (Isosorbide Mononitrate 30 Mg Tablet) [facility] Last Admin: 11/12/20 22:34 Dose: 30 mg Documented by: Methadone HCl (Methadone 5 Mg Tablet) 2.5 mg PO DAILY [facility] Last Admin: 11/12/20 09:37 Dose: 2.5 mg Documented by: Methocarbamol (Methocarbamol 750 Mg Tablet) 750 mg PO TID PRN PRN PRN Reason: Muscle spasms Metoprolol Succinate (Metoprolol(Xl)Succ 25 Mg Tablet) 25 mg PO DAILY [facility] Last Admin: 11/12/20 09:33 Dose: 25 mg Documented by: Polyethylene Glycol (Polyethylene Glycol 3350 17 Gm Packet) 17 gm PO DAILY [facility] Last Admin: 11/12/20 09:33 Dose: 17 gm Documented by: Sevelamer Carbonate (Sevelamer Carbonate 800 Mg Tablet) 2,400 mg PO TIDCM [facility] Last Admin: 11/12/20 17:03 Dose: 2,400 mg Documented by: Sodium Chloride (0.9% Saline Lock 10 Ml Syringe) 10 - 40 ml IV UD PRN PRN Reason: SALINE FLUSH Last Admin: 11/12/20 22:36 Dose: 10 ml Documented by: Home Medications: Medications to take at Discharge Amiodarone HCl 200 mg PO DAILY 11/12/20 Aspirin E.C. [Ecotrin] 81 mg PO DAILY@0800 11/12/20 Atorvastatin Calcium 20 mg PO DAILY 11/12/20 Calcium Carbonate [Tums] 400 mg PO PCHS 11/12/20 Famotidine [Pepcid] 20 mg PO DAILY 11/12/20 Gabapentin 300 mg PO TID 11/12/20 Insulin Aspart [Novolog Flexpen] 20 units SC TIDCM 11/12/20 Insulin Glargine,Hum.rec.anlog [Lantus Solostar] 55 unit SQ QHS 11/12/20 Isosorbide Mononitrate 30 mg PO QHS 11/12/20 Mecobalamin [B12 Active] 1,000 mcg PO BID 11/12/20 Methadone HCl 2.5 mg PO DAILY 11/12/20 Methocarbamol 750 mg PO TID PRN PRN 11/12/20 Metoprolol Succinate 25 mg PO DAILY 11/12/20 Polyethylene Glycol 8000 [Polyethylene Glycol] 3,340 gm PO DAILY 11/12/20 Sevelamer Carbonate 2,400 mg PO TID 11/12/20 Tiotropium Br/Olodaterol HCl [Stiolto Respimat Inhal [place]] 2 puff IH DAILY 11/12/20 Polymyxin B Sulf/Trimethoprim [Polymyxin B-Tmp Eye Drops] 1 drp OP Q4H 5 Days #10 ml 11/13/20 Following Prescriptions Were Given to Patient: Polymyxin B Sulf/Trimethoprim [Polymyxin B-Tmp Eye Drops] 1 drp OP Q4H 5 Days #10 ml Transmission Status: Received by [facility] Primary Care Physician: [facility] [Primary Care Provider] - Medical Necessity - Tobacco Use Smoking Status: Never smoker Meaningful Use Info Meaningful Use Diagnoses (Choose all that apply): None applicable OBSV E&M: 40183 Observation care discharge
[2020-11-13] MEDS: SEVELAMER CARBONATE 800 MG TABLET 2400 MG PO (08:53)
[2020-11-13] MEDS: Famotidine 20 MG Tablet PO (08:53)
[2020-11-13] MEDS: Cyanocobalamin 500 MCG Tablet 1000 MCG PO (08:53)
[2020-11-13] MEDS: Aspirin E.C. 81 MG Tablet PO (08:53)
[2020-11-13] MEDS: Calcium Carbonate 500 MG Tablet PO (08:53)
[2020-11-13 09:02] VITALS: O2SAT 98
[2020-11-13 09:44] VITALS: PULSE 79
[2020-11-13] MEDS: Metoprolol(XL)Succ 25 MG Tablet PO (09:44)
[2020-11-13] MEDS: Amiodarone 200 MG Tablet PO (09:45)
[2020-11-13] MEDS: Polyethylene Glycol 3350 17 GM PACKET PO (09:45)
[2020-11-13 10:00] VITALS: BP 120/59; PULSE 79; RESP 20; TEMP 37.1; O2SAT 95
--- NOTE | 2020-11-13 10:05 | CASEMGMT ---
JOAQUIM ADAMS Assessment: Face to Face with pt for initial transition planning/care coordination assessment. JAOQUIM ADAMS introduced self and role at [facility], pt voices understanding and consents to assessment. Pt is A/O x4 and answers all questions appropriately at this time. Pt sitting up in chair, just received breakfast. Pt in no distress. Care providers, pharmacy, and demographics verified/updated. Admitting Dx: fever with confusion PCP: [facility] at [facility] Specialists: Pt reports he has many specialists but is unsure of the names. Pt states his will be here soon and she knows all of their names. Pt has dialysis M/W/F at [facility] in [place]. Preferred Pharmacy: [facility] Insurance: [facility] benefits, [employer] [facility] Prescription Benefit: yes LW/HPOA: Pt reports he has a LW and DPOA. States his DPOA is his , Jovita Poole. LNOK: , Jovita Living Arrangements: Pt lives with in a two story house with no steps to enter. Pt states he needs assistance with ADL's and his assists. Pt denies concerns at home. Transportation: Pt states he drives some but mostly his transports him. DME/HHC/SNF: Pt has a cane, walker and w/c at home. Pt states he has an aide 4 days/wk that assists with personal care through the [facility]. He reports having previous HHC but is unsure who it was through. He has previously stayed at [facility]. Pt states no concerns with going home at time of dc. Pt states no further concerns/needs. CM to follow. Advised pt to ask CM if any further question/concerns/needs arise, voices understanding. Pt Goal: Home Plan: Home with VA services and family support.
--- NOTE | 2020-11-13 11:08 | CASEMGMT ---
Social Work Note SW updated that pt is heavy assist, may not be able to take pt home. NAMAN printed off list of SNF that accept pt's insurance ([employer]). SW in to speak with pt and pt's Jovita. Pt sitting in wheelchair, ready to discharge. SW attempted to speak with pt and Jovita about SNF. Jovita states she doesn't really want pt to go to a prison with the COVID and she will be reaching out to the [facility] to see if there are any rehabs the VA recommend. NAMAN explained that there are certain SNF that are VA connected but pt would have to be 70% service connected for the VA to pay. Patient (and/or patient?s family) was provided a list of SNF providers including quality and resource use data and consistent with the patient?s preferred geographic region, medical needs, and insurance network. NAMAN informed Jovita that pt's PCP is also able to assist pt going to a SNF today if necessary from home. Jovita states understanding. Pt then wheeled out of room to be discharged. Pt discharged home. Joseline Westbrook COIN ROLLING MACHINE OPERATOR, MEDICAL ASSISTANT PRN
== END 2020-11-13 11:00 | disposition home or self-care (01) | DRG 602 ==
LOC: ED 02:16 → ICU 05:04 → MS3 18:34
PROVIDERS: Admitting Provider Family Medicine; Emergency Provider Emergency Medicine; Visit Provider Internal Medicine
DX: L03.213 Periorbital cellulitis (principal); N18.6 End stage renal disease; G93.41 Metabolic encephalopathy; Z68.43 Body mass index [BMI] 50.0-59.9, adult; R50.9 Fever, unspecified; E11.22 Type 2 diabetes mellitus with diabetic chronic kidney disease; F03.90 Unspecified dementia, unspecified severity, without behavioral disturbance, psychotic disturbance, mood disturbance, and anxiety; I48.91 Unspecified atrial fibrillation; Z99.2 Dependence on renal dialysis; Z79.899 Other long term (current) drug therapy; Z79.82 Long term (current) use of aspirin; Z79.4 Long term (current) use of insulin; Z99.81 Dependence on supplemental oxygen; Z74.01 Bed confinement status; E66.01 Morbid (severe) obesity due to excess calories
CPT/HCPCS: 36415; 70450; 70486; 71045; 71250; 74176; 80048; 80053; 82962; 83605; 84484; 85025; 85610; 85730; 87040; 87426; 87633; 93005; 94640; 97110; 97162; 97166; 97530; 97535; 99285; J7030; A4216